=== PATIENT | female | born 1960 | race Caucasian/White ===

== ENCOUNTER 2022-05-01 13:39 | Outpatient (REF) | payer BC, SELFPAY ==
[2022-05-01 14:48] LABS: Alanine Aminotransferase 15 U/L (0-31); Albumin Level 4.1 g/dL (3.5-5.0); Alkaline Phosphatase 65 U/L (39-117); Anion Gap 13 (12-20); Aspartate Amino Transferase 13 U/L (5-31); Bilirubin Total 0.6 mg/dL (0.0-1.0); Blood Urea Nitrogen 13 mg/dL (9-16); Calcium 9.5 mg/dL (8.4-10.2); Carbon Dioxide 25 mmol/L (22-29); Chloride 108 mmol/L (96-108); Estimated Glomerular Filt Rate > 60; Glucose Random 100 mg/dL (60-115); Potassium 4.3 mmol/L (3.3-5.1); Sodium 142 mmol/L (135-145); Total Protein 6.9 g/dL (6.5-8.0)
[2022-05-01 14:55] LABS: Free T4 (Free Thyroxine) 1.03 ng/dL (0.71-1.85); Thyroid Stimulating Hormone 2.42 uIU/mL (0.32-4.0); Vitamin D 25-OH Total 24.3 ng/mL (>30)
== END 2022-05-01 13:40 | disposition home or self-care (01) ==
LOC: HO.LAB 13:39
PROVIDERS: PCP Pediatrics; Visit Provider Nurse Practitioner Psychiatric/Mental Health
DX: F33.1 Major depressive disorder, recurrent, moderate (principal)
CPT/HCPCS: 36415; 80053; 82306; 84439; 84443

== ENCOUNTER 2022-05-02 11:07 | Emergency (ER) | payer BC, SELFPAY ==
[2022-05-02 11:14] VITALS: BP 186/74; PULSE 58; O2SAT 96
[2022-05-02 11:21] VITALS: BP 174/89; PULSE 56; RESP 18; TEMP 36.7; O2SAT 98; BMI 45.1
[2022-05-02 11:23] VITALS: BP 161/87; PULSE 58; RESP 16; O2SAT 97
--- NOTE | 2022-05-02 11:34 | ECG_ITS ---
Test Reason : CP Blood Pressure : / mmHG Vent. Rate : 055 BPM Atrial Rate : 055 BPM P-R Int : 174 ms QRS Dur : 102 ms QT Int : 462 ms P-R-T Axes : 054 -03 027 degrees QTc Int : 441 ms Sinus bradycardia Incomplete right bundle branch block Nonspecific ST abnormality Abnormal ECG No previous ECGs available Referred By: Asaf Ferrari Electronically Signed By:Guille Dunlap
--- NOTE | 2022-05-02 11:35 | ED_ITS ---
HPI - General Adult General Chief complaint: General Medical Stated complaint: High BP per EMS Time Seen by Provider: 05/02/22 11:20 Source: patient and EMS Mode of arrival: EMS Limitations: no limitations History of Present Illness HPI narrative: Patient was sent here by the partial hospitalization program (psychiatric) because anxiety and elevated blood pressure. She is feeling a little bit better now, she is in the process 12 over medication for anxiety adjusted. She received her 0.5 mg of lorazepam Onset (ago): hour(s) (2) Radiation: non-radiation Severity: moderate Pain Consistency: intermittent Relieving factors: none Exacerbating factors: none Related Data Home Medications Medication Instructions Recorded Confirmed aspirin 81 mg capsule 81 mg PO DAILY 05/01/22 05/01/22 atorvastatin 40 mg tablet 40 mg PO BEDTIME 05/01/22 05/01/22 duloxetine 60 mg capsule,delayed 60 mg PO DAILY 05/01/22 05/01/22 release (Cymbalta) furosemide 40 mg tablet 40 mg PO DAILY 05/01/22 05/01/22 levothyroxine 150 mcg tablet 1 tab PO DAILY 05/01/22 05/01/22 metoprolol succinate 25 mg 25 mg PO DAILY 05/01/22 05/01/22 tablet,extended release 24 hr Previous Rx's Medication Instructions Recorded duloxetine 20 mg capsule,delayed 20 mg PO BEDTIME #14 caps 05/01/22 release (Cymbalta) lorazepam 0.5 mg tablet 0.5 mg PO BID PRN anxiety #10 tabs 05/01/22 Allergies Allergy/AdvReac Type Severity Reaction Status Date / Time morphine Allergy Anaphylaxis Verified 05/01/22 12:14 Review of Systems Constitutional: Constitutional: Reports no additional constitutional complaints Cardiovascular: Cardiovascular: Reports no additional cardiovascular complaints Respiratory: Respiratory: Reports no additional respiratory complaints Neurologic: Reports Abnormal speech present [facility] Past Medical History Medical History COPD (chronic obstructive pulmonary disease) Hyperlipidemia Hypertension Hypoglycemia Hypothyroidism Miscarriage Surgical History History of cholecystectomy Hx of appendectomy Social History Social History Household Members: None Alcohol intake: never Patient Tobacco Use Status: Former Tobacco user Do you have thoughts of harming others: None Physical Exam ED Vital Signs: Vital Signs - 24 hr 05/02/22 11:21 05/02/22 11:23 05/02/22 12:36 Temperature 98.1 F Pulse Rate 56 58 50 Respiratory Rate 18 16 15 Blood Pressure 174/89 H 161/87 H 147/84 H Pulse Oximetry 98 97 96 Oxygen Delivery Method Room Air Room Air Room Air 05/02/22 12:56 Temperature Pulse Rate 50 Respiratory Rate 16 Blood Pressure 141/80 H Pulse Oximetry 97 Oxygen Delivery Method BMI result Body Mass Index 45.1 Const General: cooperative Nutritional Appearance: well nourished Orientation/consciousness: patient oriented x3 Limitations: no limitations HENMT Head: Yes normal to inspection General nose exam: Normal external nose present Face and sinus: Yes normal facial exam Mouth: Normal oral and palatal mucosa present Neck Neck: Yes normal visual inspection, Yes full ROM and Yes no lymphadenopathy Thyroid: Thyroid normal Resp Effort & Inspection: normal respiratory effort Cardio Jugular venous distension: no JVD Rhythm: regular rhythm GI Inspection: Yes normal to inspection Palpation (GI): Soft to palpation, not firm, nontender and no guarding Auscultation: normal bowel sounds General: Yes no CVA tenderness Back/Spine/Pelvis Back: no CVA tenderness Skin General skin exam: elasticity normal Neuro General: patient oriented x3 Cranial nerves: Yes CN's II-XII intact bilaterally Speech: Abnormal speech present Extrem General: Yes normal to inspection Course Reevaluation(s) Reevaluation #1: Re-examined patient is feeling much better troponin negative EKG normal most likely anxiety reaction blood pressure also is better will discharge home Time: 12:46 Medications Administered Discontinued Medications Generic Name Dose Route Start Last Admin Trade Name Anilq PRN Reason Stop Dose Admin Lorazepam 1 mg 05/02/22 11:33 05/02/22 11:42 Lorazepam 1 Mg Tablet PO 05/02/22 11:34 1 mg ONCE ONE Administration Medical Decision Making Medical Decision Making MDM Narrative: Presented with elevated blood pressure and anxiety we will do EKG labs and reassess Differential Diagnosis Differential Diagnoses: The differential diagnosis associated with the presentation includes Acute [place]/panic attack/hypertensive urgency Admission/Observation Consideration of admission/observation: Escalation of care including admission/observation considered Lab Data 05/02/22 11:53 05/02/22 11:53 Labs: Lab Results 05/02/22 05/02/22 05/02/22 Range/Units 11:53 11:53 11:53 WBC 7.1 (4.8-10.8) X10*3/uL RBC 4.68 (4.20-5.50) X10*6/uL Hgb 14.2 (12.0-16.0) g/dl Hct 43.4 (37.0-47.0) % MCV 92.7 (80.0-98.0) fL MCH 30.3 (27.0-33.0) pg MCHC 32.7 (31.0-35.0) g/dl RDW 13.6 (11.0-16.0) % Plt Count 282 (160-400) X10*3/uL MPV 8.5 L (9.4-12.3) fL Immature Gran % (Auto) 0.4 (0.0-0.4) % Neut % (Auto) 66.3 (45-73) % Lymph % (Auto) 25.7 (20-40) % [place] % (Auto) 5.9 (2-11) % Eos % (Auto) 1.1 (0-4) % Baso % (Auto) 0.6 (0-2) % Lymph # (Auto) 1.8 (1.2-4.9) X10*3/uL [place] # (Auto) 0.4 (0.1-1.2) X10*3/uL Eos # (Auto) 0.1 (0.0-0.4) X10*3/uL Baso # (Auto) 0.0 (0.0-0.2) X10*3/uL Abs Immat Gran (auto) 0.03 (0.00-0.03) X10*3/uL Absolute Neuts (auto) 4.7 (2.0-8.3) x10*3/uL Absolute Nucleated RBC 0.000 (0.0-0.012) X10*3/uL Nucleated RBC % (auto) 0.0 (0.0-0.2) /100WBC Sodium 141 (135-145) mmol/L Potassium 4.5 (3.3-5.1) mmol/L Chloride 107 (96-108) mmol/L Carbon Dioxide 25 (22-29) mmol/L Anion Gap 14 (12-20) BUN 15 (9-16) mg/dL Creatinine 0.87 (0.5-1.4) mg/dL Estim Creat Clear Calc 89.1 Estimated GFR > 60 Random Glucose 104 (60-115) mg/dL Calcium 9.8 (8.4-10.2) mg/dL Total Bilirubin 0.8 (0.0-1.0) mg/dL AST 15 (5-31) U/L ALT 17 (0-31) U/L Alkaline Phosphatase 68 (39-117) U/L Troponin I High Sens < 3.5 (<3.5-17.0) ng/L Total Protein 7.1 (6.5-8.0) g/dL Albumin 4.1 (3.5-5.0) g/dL Independent Interpretation I performed an independent interpretation of an: EKG Interpretation: Normal sinus rhythm rate [address]-T changes Discharge Plan Discharge Clinical Impression: Anxiety Patient Disposition: Home, Self-Care Instructions: Anxiety (ED) Additional Instructions: Follow-up with your primary care physician return if you worse any concern Prescriptions: No Action duloxetine [Cymbalta] 20 mg capsule,delayed release(DR/EC) 20 mg PO BEDTIME Qty: 14 0RF Rx Instructions: Continue with 60mg daily in am, start 20mg in evening / bedtime lorazepam 0.5 mg tablet 0.5 mg PO BID PRN (Reason: anxiety) Qty: 10 0RF furosemide 40 mg Tablet 40 mg PO DAILY atorvastatin 40 mg Tablet 40 mg PO BEDTIME levothyroxine 150 mcg tablet 1 tab PO DAILY metoprolol succinate 25 mg Tablet Extended Release 24 Hr 25 mg PO DAILY duloxetine [Cymbalta] 60 mg Capsule,Delayed Release(Dr/Ec) 60 mg PO DAILY aspirin 81 mg Capsule 81 mg PO DAILY Referrals: Bakari Toure MD [Primary Care Provider] - 2 days Interventions: ED Discharge Assessment Last Done: 05/02/22 12:56 Discharge Date/Time: 05/02/22 12:57
[2022-05-02] MEDS: LORazepam 1 MG TABLET PO (11:42)
[2022-05-02 11:58] LABS: MANUAL DIFF FLAG NO
[2022-05-02 12:00] LABS: Basophils Percent Auto 0.6 % (0-2); Eosinophils Absolute Auto 0.1 X10*3/uL (0.0-0.4); Eosinophils Percent Auto 1.1 % (0-4); Hematocrit 43.4 % (37.0-47.0); Hemoglobin 14.2 g/dl (12.0-16.0); Imm Gran Abs Auto 0.03 X10*3/uL (0.00-0.03); Imm Gran Pct Auto 0.4 % (0.0-0.4); Lymphocytes Absolute Auto 1.8 X10*3/uL (1.2-4.9); Lymphocytes Percent Auto 25.7 % (20-40); Mean Corpuscular HGB Conc 32.7 g/dl (31.0-35.0); Mean Corpuscular Hemoglobin 30.3 pg (27.0-33.0); Mean Corpuscular Volume 92.7 fL (80.0-98.0); Mean Platelet Volume 8.5 fL (9.4-12.3); Monocytes Absolute Auto 0.4 X10*3/uL (0.1-1.2); Monocytes Percent Auto 5.9 % (2-11); Neutrophils Absolute Auto 4.7 x10*3/uL (2.0-8.3); Neutrophils Percent Auto 66.3 % (45-73); Platelet Count 282 X10*3/uL (160-400); Red Blood Count 4.68 X10*6/uL (4.20-5.50); Red Cell Distribution Width 13.6 % (11.0-16.0); White Blood Count 7.1 X10*3/uL (4.8-10.8)
[2022-05-02 12:17] LABS: Alanine Aminotransferase 17 U/L (0-31); Albumin Level 4.1 g/dL (3.5-5.0); Alkaline Phosphatase 68 U/L (39-117); Anion Gap 14 (12-20); Aspartate Amino Transferase 15 U/L (5-31); Bilirubin Total 0.8 mg/dL (0.0-1.0); Blood Urea Nitrogen 15 mg/dL (9-16); Calcium 9.8 mg/dL (8.4-10.2); Carbon Dioxide 25 mmol/L (22-29); Chloride 107 mmol/L (96-108); Creatinine Clr Calc Pharmacy 89.1; Estimated Glomerular Filt Rate > 60; Glucose Random 104 mg/dL (60-115); Potassium 4.5 mmol/L (3.3-5.1); Sodium 141 mmol/L (135-145); Total Protein 7.1 g/dL (6.5-8.0)
[2022-05-02 12:30] LABS: Troponin-I High Sensitivity < 3.5 ng/L (<3.5-17.0)
[2022-05-02 12:36] VITALS: BP 147/84; PULSE 50; RESP 15; O2SAT 96
[2022-05-02 12:56] VITALS: BP 141/80; PULSE 50; RESP 16; O2SAT 97
== END 2022-05-02 12:57 | disposition home or self-care (01) ==
PROVIDERS: Emergency Provider Emergency Medicine; PCP Pediatrics
DX: F41.9 Anxiety disorder, unspecified (principal); I10 Essential (primary) hypertension; E78.5 Hyperlipidemia, unspecified; Z87.891 Personal history of nicotine dependence; Z79.82 Long term (current) use of aspirin; Z79.02 Long term (current) use of antithrombotics/antiplatelets; Z79.899 Other long term (current) drug therapy
CPT/HCPCS: 36415; 80053; 84484; 85025; 93005; 99283; 99284

== ENCOUNTER 2022-05-29 12:15 | Outpatient (RCR) | payer BC, SELFPAY ==
[2022-05-01 12:07] VITALS: BP 146/82; PULSE 60; TEMP 36.7
[2022-05-01 12:16] VITALS: BMI 43.5
--- NOTE | 2022-05-01 13:27 | PC.ADMIT ---
Patient was referred by her therapist to [facility] d/t increased sxs of depression with frequent crying and passive SI. Patient reports multiple stresses including relationship with her adult daughter, her mother's declining health, and separation from her . Patient is alert and oriented x4. Calm and cooperative. Presented with depressed mood and anxious affect. Denied SI at present. Reviewed patient safety plan with her and gave Joanna a copy if needed. Patient has been using Marijuana to cope with how she is feeling. Reports needing increased amounts to get the same effect. Educated patient verbally and given written education on Marijuana use and addiction including what to expect regarding withdrawal sxs. Patient looking to cut down on her use. Agrees not to use while in the program. Medications reconciled with patient and patient's pharmacy. Patient reports taking medications as prescribed.
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
--- NOTE | 2022-05-02 07:55 | HO.PHP ---
The clients case was discussed and opened in treatment team
--- NOTE | 2022-05-02 11:41 | PC.NURSE ---
Patient met with Annmarie Ponce. See provider note. Left patient's a voice mail message to call me back to notify him that patient was taken to the ER for evaluation for hypertension.
--- NOTE | 2022-05-02 11:56 | PC.NURSE ---
Spoke to patients Jose Manuel and let him know that his was hypertensive, tremulous, diaphoretic, and reporting upper chest tightness. Ambulance called and patient being evaluated in the ER at [facility].
--- NOTE | 2022-05-02 13:35 | HO.PHPPROGNO ---
Subjective Subjective Date of Service: 05/02/22 Reason For Visit: MDD Diagnostics Vital Signs (24Hr): BMI result Body Mass Index 43.5 Assessment & Plan Certification I certify that partial hospital treatment is medically necessary due to the symptoms and problems resulting from the patient's mental illness and the failure to treat the patient at the partial hospital level of care would likely result in the patient requiring inpatient psychiatric care which could not be prevented at a less intensive level of care. Total time managing care of this patient today ____ minutes. Discharge Plan Discharge Attending provider: Juve Leung Medications: New duloxetine [Cymbalta] 20 mg capsule,delayed release(DR/EC) 20 mg PO BEDTIME Qty: 14 0RF Rx Instructions: Continue with 60mg daily in am, start 20mg in evening / bedtime lorazepam 0.5 mg tablet 0.5 mg PO BID PRN (Reason: anxiety) Qty: 10 0RF No Action furosemide 40 mg Tablet 40 mg PO DAILY atorvastatin 40 mg Tablet 40 mg PO BEDTIME levothyroxine 150 mcg tablet 1 tab PO DAILY metoprolol succinate 25 mg Tablet Extended Release 24 Hr 25 mg PO DAILY duloxetine [Cymbalta] 60 mg Capsule,Delayed Release(Dr/Ec) 60 mg PO DAILY aspirin 81 mg Capsule 81 mg PO DAILY
--- NOTE | 2022-05-02 15:59 | PM.EVENT ---
Event Note Date of Service: 05/02/22 Event Note: Met with patient to review lab results that were completed yesterday. However, patient reported feeling lightheaded, jittery diaphoretic . Also reports upper chest discomfort. Appeared SOB, anxious, while speaking. Took morning antihypertensive medications as scheduled. Blood pressure 180/96, pulse 70 at 10:05. Patient has p.r.n. lorazepam 0.5 mg on her person, advised to take 1 tab. Patient had taken increased dose of Cymbalta last evening. Reports poor sleep. Blood pressure at 10 15:00 160/90 left arm, 156/80 right arm. 911 was activated. BP recheck at 10:30, 152/86 right arm. Patient was escorted to hospital ED by EMT's via ambulance. Patient plans to stop evening dose Cymbalta 20 mg. Time Spent With Patient Time: Total time managing care of this patient today ___30_ minutes.
--- NOTE | 2022-05-08 12:32 | PC.NURSE ---
Patient reports she has been monitoring her blood pressure at home and this morning she reports it was 128/86. Reports she takes her blood pressure TID and writes down the results. Will bring in a copy of the results tomorrow. AT 1220 BP 156/82 P 56. Patient reports when she went to the ER for evaluation for Hypertension, diaphoresis, upper chest pain, and tremulous she was dx with anxiety and her blood pressures eventually came down. I encouraged patient to make an appointment with her PCP to f/u.
[2022-05-08 12:38] VITALS: BP 156/82; PULSE 56
--- NOTE | 2022-05-09 11:46 | HO.PHPPROGNO ---
Subjective Subjective Date of Service: 05/09/22 Reason For Visit: MDD Medical Problems Affecting Mental Status: No Interim History: Describes mood as ?I feel like I am at my norm ?., feels depression is much less. Decrease cannabis use, 1 joint every other day, states that she is not liking it as much. Is not taking the extra 20 mg Cymbalta, as the 1 day she took it she felt agitated. Finding PHP program helpful. No SI, no safety concerns. Sleeping well. Appetite improved, more regular. BP trending down, today reading 128/76, which she reports is her baseline. Medication Compliance: Yes Side effects from medications: No Attending Groups: Yes Review of Systems Acute medical concerns: No Medical Review of Systems: unchanged Review of Systems Review of Systems Yes all other systems are reviewed and are negative Constitutional: Reports no additional constitutional complaints Mental Status Exam Mental Status Exam Narrative: NAD No SI Patient Appearance: Well Grooomed and Appropriate Patient Orientation: Person, Place, Time and Situation Level of Consciousness: Appropriate and Alert Patient Behavior: Appropriate, Cooperative and Good Eye Contact Mood Description: Appropriate Affect Description: Depressed (improved) Patient Cognition Impaired: No Ability to Follow Directions: Excellent Speech Pattern: Clear and Appropriate Memory Description: Intact Hallucinations: None Delusions: Not Present Thought Process: Intact Thought Content: positive for Intact Depressive Symptoms: Increased Anxiety Judgement: Fair Diagnostics Vital Signs (24Hr): Vital Signs - 24 hr 05/08/22 12:38 Pulse Rate 56 Blood Pressure 156/82 H BMI result Body Mass Index 43.5 Assessment & Plan Assessment & Plan (1) Major depressive disorder, recurrent severe without psychotic features: Status: Acute Code(s): F33.2 - Major depressive disorder, recurrent severe without psychotic features Assessment and Plan: Describes mood as ?I feel like I am at my norm ?., some depression, but much improved. Decrease cannabis use, 1 joint every other day, states that she is not liking it as much. Disc. Affects of cannabis overall on mood, well as physical symptoms of heavy use. Reports that she feels she is able to focus more, and mood is much more stabilized now that she has greatly reduced use. Is not taking the extra 20 mg Cymbalta, as the 1 day she took it she felt agitated. Discussed medications, she feels the current dose Cymbalta is working well, will discontinue the added 20 mg. Finding PHP program helpful. Participating in groups, finding feedback and it coping skills immensely helpful. No SI, no safety concerns. Sleeping well. Appetite improved, more regular. BP trending down, today reading 128/76, which she reports is her baseline. Has not needed p.r.n. lorazepam since last week, will take 1/2 tab to 1 tab if becomes extremely anxious. (2) Cannabis dependence, uncomplicated: Status: Acute Code(s): F12.20 - Cannabis dependence, uncomplicated Plan 1. Continue with current [facility] plan of care. 2. Continue with current medications. Duloxetine 20 mg DC, as patient took only 1 day. 3. Follow-up as per protocol. Patient educated on: diagnosis, medication risk/benefits, substance abuse and therapeutic strategies Informed Consent: understands Reason for contiued partial hosp. stay Substantial Risk for: inability to function and rapid decompensation Certification I certify that partial hospital treatment is medically necessary due to the symptoms and problems resulting from the patient's mental illness and the failure to treat the patient at the partial hospital level of care would likely result in the patient requiring inpatient psychiatric care which could not be prevented at a less intensive level of care. Total time managing care of this patient today _20___ minutes. Discharge Plan Discharge Attending provider: Juve Leung Medications: New lorazepam 0.5 mg tablet 0.5 mg PO BID PRN (Reason: anxiety) Qty: 10 0RF No Action furosemide 40 mg Tablet 40 mg PO DAILY atorvastatin 40 mg Tablet 40 mg PO BEDTIME levothyroxine 150 mcg tablet 1 tab PO DAILY metoprolol succinate 25 mg Tablet Extended Release 24 Hr 25 mg PO DAILY duloxetine [Cymbalta] 60 mg Capsule,Delayed Release(Dr/Ec) 60 mg PO DAILY aspirin 81 mg Capsule 81 mg PO DAILY
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
--- NOTE | 2022-05-28 12:43 | P.PNPSP_ITS ---
Subjective Subjective Date of Service: 05/28/22 Reason For Visit: MDD Medical Problems Affecting Mental Status: No Interim History: Describes mood today as good, happy . No SI, feels safe. No cannabis past 21 days. Some anxiety, minimal. Feels more energetic, needing less sleep over past several nights. Last night slept 6 hours, night before slept 5-1/2. Says normally sleeps 8hours. Did take nap yesterday afternoon. Questions about medication lamotrigine, concern about ?feeling too good ?. Currently on day 10 of lamotrigine 25 mg. Reports her therapist and her sister both commented that she seems to be her old self. Fearful of becoming hypomanic. Medication Compliance: Yes Side effects from medications: No Attending Groups: Yes Review of Systems Acute medical concerns: No Medical Review of Systems: unchanged Review of Systems Constitutional: Reports no additional constitutional complaints Mental Status Exam Mental Status Exam Narrative: NAD No SI Patient Appearance: Well Grooomed and Appropriate Patient Orientation: Person, Place, Time and Situation Level of Consciousness: Appropriate and Alert Patient Behavior: Appropriate, Cooperative and Good Eye Contact Mood Description: Calm, Happy, Appropriate, Cheerful and Anxious (slight) Affect Description: Calm, Happy, Appropriate, Cheerful and Anxious (slight) Patient Cognition Impaired: No Ability to Follow Directions: Excellent Speech Pattern: Clear and Appropriate Memory Description: Intact Hallucinations: None Delusions: Not Present Thought Process: Intact Thought Content: positive for Intact Judgement: Good Diagnostics Vital Signs (24Hr): BMI result Body Mass Index 43.5 Assessment & Plan Assessment & Plan (1) Major depressive disorder, recurrent severe without psychotic features: Status: Acute Code(s): F33.2 - Major depressive disorder, recurrent severe without psychotic features Assessment and Plan: Reports less depressed, more energetic. Has referral to a new provider in place. Feels much improved, however has several questions regarding hypomanic symptoms. Symptoms of both lilly and hypomania discussed with patient in detail. Discussed her concerns in detail. Advised to continue with lamotrigine dose 25 mg rather than increasing to 50, until she meets with outpatient provider. Patient feels safe completely, although we did review plan to call crisis if at any time that changes. No SI, feels safe. Feels stable for discharge at this time. (2) Cannabis dependence, uncomplicated: Status: Acute Code(s): F12.20 - Cannabis dependence, uncomplicated Assessment and Plan: As remained abstinent from cannabis past 21 days. Denies any withdrawals, cravings. Says she is happy with decision to stop. Plan 1. Patient to remain at lamotrigine 25 mg daily, without increased to 50 mg until meeting with outpatient provider. 2. Patient advised regarding symptoms of hypomania, with instructions to stop lamotrigine if symptoms continue. 3. Patient appears stable for discharge from [facility] at this time. Patient educated on: diagnosis, medication risk/benefits, substance abuse and therapeutic strategies Informed Consent: understands Reason for contiued partial hosp. stay Substantial Risk for: stable for discharge Certification I certify that partial hospital treatment is medically necessary due to the symptoms and problems resulting from the patient's mental illness and the failure to treat the patient at the partial hospital level of care would likely result in the patient requiring inpatient psychiatric care which could not be prevented at a less intensive level of care. Total time managing care of this patient today ___20_ minutes. Discharge Plan Discharge Attending provider: Juve Leung Medications: New lorazepam 0.5 mg tablet 0.5 mg PO BID PRN (Reason: anxiety) Qty: 10 0RF No Action lamotrigine 25 mg tablet See Rx Instructions .ROUTE .COMPLEX 14 Days Qty: 42 0RF Rx Instructions: Take 25 mg orally (1 tab) for 14 days. Then take 50mg orally (2 tabs) for 14 days. lamotrigine 100 mg tablet 100 mg PO DAILY Qty: 30 0RF Rx Instructions: Start after completion of 50mg daily X 14 days furosemide 40 mg Tablet 40 mg PO DAILY atorvastatin 40 mg Tablet 40 mg PO BEDTIME levothyroxine 150 mcg tablet 1 tab PO DAILY metoprolol succinate 25 mg Tablet Extended Release 24 Hr 25 mg PO DAILY duloxetine [Cymbalta] 60 mg Capsule,Delayed Release(Dr/Ec) 60 mg PO DAILY aspirin 81 mg Capsule 81 mg PO DAILY Stand Alone Forms: Patient Portal Discharge page Patient Education: Depression (DC)
--- NOTE | 2022-05-29 10:01 | HO.PHP ---
I made a referral to [facility] in [place]. They will be calling her directly to set up an appointment. I left a message with Marycarmen with this information and the number for the agency.
--- NOTE | 2022-05-29 15:01 | HO.PHP ---
I spoke with the clients therapist Kristin sanchez [facility] re client care and dc . I informed her that I made a referral for the client for a prescriber to [facility] .
== END 2022-05-29 23:59 | disposition home or self-care (01) ==
LOC: HO.PHPA 12:15
PROVIDERS: Visit Provider Psychiatry & Neurology Psychiatry
DX: F33.2 Major depressive disorder, recurrent severe without psychotic features (principal); F12.20 Cannabis dependence, uncomplicated; Z79.899 Other long term (current) drug therapy
CPT/HCPCS: 90791; 90853